=== PATIENT | female | born 1965 | race Caucasian/White ===

== ENCOUNTER 2023-10-09 14:11 | Outpatient (CLI) | payer BC, SELFPAY ==
--- NOTE | 2023-10-10 16:52 | WPDPFTINT ---
PFT Procedure Performed PFT Procedure Performed Spirometry with Pre/Post Bronchodilator Plethysmography (Lung Vol) Diffusing Cap (DLCO) Flow Vol Loop PFT Interpretation This is a pulmonary function test with pre and post-bronchodilator spirometry, plethysmography and diffusing capacity. The test was performed and results interpreted in accordance with the 2019 and 2005 ATS/ERS Task Force guidelines respectively using the Global Lung Function Initiative-2012 reference equations. Patient demonstrated good effort and cooperation. Reproducibility criteria were met. The quality of the pre bronchodilator spirometry maneuver was Grade A and post bronchodilator spirometry maneuver was Grade A. Findings: Spirometry: There is decreased maximal expiratory airflow at all lung volumes with concave expiratory flow tracing. The contour the inspiratory flow tracing is normal. The pre bronchodilator FVC is 3.37 L, 90% predicted. The pre bronchodilator FEV1 is 2.11 L, 72% predicted. The pre bronchodilator FEV1: FVC ratio is 63%. The post bronchodilator FVC is 3.44 L, representing a 2% increase. The post bronchodilator FEV1 is 2.14 L, representing a 1% increase. The post bronchodilator FEV1: FVC ratio 62%. Plethysmography: The total lung capacity is 5.27 L, 91% predicted. The functional residual capacity is 2.80 L, 85% predicted. The residual volume is 1.90 L, 85% predicted. Diffusing capacity: The diffusing capacity unadjusted unadjusted for hemoglobin and carboxyhemoglobin is 17.1, 73% predicted. The diffusing capacity adjusted for alveolar volume is 3.61, 86% predicted. Impression: There is a mild obstructive abnormality. There is no significant improvement after inhaling a single dose of albuterol. The lung volumes are normal. The diffusing capacity is normal. There are no prior studies for comparison
== END 2023-10-09 14:12 | disposition home or self-care (01) ==
PROVIDERS: PCP Physician Assistant; Visit Provider Internal Medicine Pulmonary Disease
DX: J45.40 Moderate persistent asthma, uncomplicated (principal); R94.2 Abnormal results of pulmonary function studies
CPT/HCPCS: 94060; 94726; 94729